=== PATIENT | female | born 1960 | race African-American/Black ===

== ENCOUNTER 2017-08-22 17:32 | Observation (INO) | END 2017-08-24 16:20 | disposition home or self-care (01) ==

== ENCOUNTER 2018-04-14 11:08 | Day surgery (SDC) | END 2018-04-14 14:56 | disposition home or self-care (01) ==

== ENCOUNTER 2018-05-18 10:45 | Emergency (ER) | END 2018-05-18 12:36 | disposition home or self-care (01) ==

== ENCOUNTER 2018-05-20 06:58 | Emergency (ER) | END 2018-05-20 07:40 | disposition home or self-care (01) ==